=== PATIENT | male | born 1980 | race Hispanic/Latino ===

== ENCOUNTER 2016-12-04 09:40 | Day surgery (SDC) | payer OTHER ==
[2016-11-16 10:40] VITALS: BMI 27.4
[2016-12-04] MEDS ORDERED: ceFAZolin IV 1 gm in Dextrose 1 GM/50 ML BAG IVPB ONE (10:14)
[2016-12-04] MEDS ORDERED: Lidocaine 1% Inj (20ml) ONE (10:14)
[2016-12-04] MEDS ORDERED: Bupivacaine 0.5% Inj(30mL) ONE (10:15)
[2016-12-04] MEDS ORDERED: Lactated Ringer's 1,000 ML IV ONE (10:50)
[2016-12-04] MEDS ORDERED: Midazolam 2 MG/2 ML VIAL ONE (10:55)
[2016-12-04] MEDS ORDERED: Propofol 10 mg/ml Inj (20 ML) ONE (10:55)
[2016-12-04] MEDS ORDERED: HYDROmorphone 0.5 mg/0.5 ml ISec IVP PRN (11:21)
--- NOTE | 2016-12-04 11:34 | PCM.SURG1 ---
Surgeon's Initial Post Op Note - Surgeon's Notes Surgeon: braxton Load Planner: FRANK Type of Anesthesia: General Mask Anesthesia Administered By: STAFF Pre-Operative Diagnosis: VOL STERILIZATION Operative Findings: VOL/STERILAZATION/NORMAL VAS Post-Operative Diagnosis: SAME Operation Performed: bILAT VASECTOMY Specimen/Specimens Removed: 2 VAS Estimated Blood Loss: EBL {In ML}: 0 Blood Products Given: N/A Drains Used: No Drains Post-Op Condition: Good Date of Surgery/Procedure: 12/04/16 Time of Surgery/Procedure: 11:34
[2016-12-04 13:36] VITALS: BP 109/58; PULSE 69; RESP 20; TEMP 98; O2SAT 100
--- NOTE | 2016-12-19 14:39 | PCM.OP ---
Dr. Keshav Han dictating operative report on Kenneth Rhodes. ID: [id number] DOS: 12/04/16 Preoperative Diagnosis: Voluntary Sterilization Postoperative Diagnosis: Voluntary Sterilization Procedure: bilateral vasectomy Procedure: Patient was asked to sign a detailed informed consent explaining all risks and complications, including failure to cause infertility. The patient was made aware of the fact that a postop sperm count is necessary to confirm infertility. He agreed to the procedure and the risks. He was brought into the room, draped and prepped in the usual manner. Timeout was taken according to the rules and regulations of [facility]. The patient was then right vas grapg using the three finger method. The vas was located under the skin. The skin was infiltrated with Marcaine anesthesia. Unfortunately at this point, the patient moved and the position of the vas was lost from the surgeon's grasp. The vas was then regraft after the patient received additional anesthesia. This required a separate small incision. The procedure was repeated and the skin was infiltrated with half % of Marcaine. A 1 inch incision was made perpendicular to the vas and peridaptous subcutaneous tissue. The vas graft ____ clamp was exteriorized and the sheath was open. A 1 inch segment of vas was removed. The proximal end was tied with 3-0 prolene suture and the vas was left outside the sheath. The distal end was tied with 3-0 prolene suture and the tip of the vas was fulgurated on both sides. The vas was amputated and sent for pathological analysis. The proximal end was buried within the sheath and the distal end was buried without the sheath. Both skin incisions were closed with 3-0 chromic suture. The attention was drawn to the opposite side, where the procedure was repeated. The patient did not jump so only 1 incision was required. The vasectomy on the left side was performed in the identical fashion like the one on the right, with the exception of the additional incision. The skin was then closed with the 3-0 chromic suture. A dry, sterile dress was placed on the scrotum and with compression. The patient tolerated this procedure well and was sent to the recovery room in good condition. Patient tolerated this procedure very well and will follow up in the office tomorrow. Rx were Tylenol with Codeine given with post operative instructions. MTDD
== END 2016-12-04 14:10 | disposition home or self-care (01) ==
LOC: C.SDS 09:40
PROVIDERS: ATTEND Urology
DX: Z30.2 Encounter for sterilization (principal)
CPT/HCPCS: 55250; 88302; J0690; J2250; J2704; J3010; J7120